=== PATIENT | male | born 1995 | race Caucasian/White ===

== ENCOUNTER 2024-05-30 10:33 | Emergency (ER) | payer OTHER ==
[~2024-05-30] VITALS: Ht 175.3 cm; Wt 92.3 kg
[~2024-05-30 10:33] MED LIST: IBUP-1051 PO; NO HOME MEDS; PSEU-225 PO
[2024-05-30 10:37] VITALS: TEMP 98
[2024-05-30] MEDS ORDERED: MELO-102 PO (14:12)
[2024-05-30] MEDS: ketorolac trometh. 30mg/ml inj. IM ONE (14:12)
[2024-05-30] MEDS ORDERED: GABA600T13 PO (14:13)
[2024-05-30] MEDS ORDERED: DULO20CA50 PO (14:14)
[2024-05-30] MEDS ORDERED: GABA300C PO (14:22)
[2024-05-30] MEDS ORDERED: HYDR-3973 PO (14:26)
[2024-05-30 15:02] VITALS: BP 123/72; PULSE 67; RESP 18; O2SAT 97
== END 2024-05-30 15:07 | disposition home or self-care (01) ==
LOC: ER 10:34
DX: G89.29 Other chronic pain (principal); M54.59 Other low back pain; M54.17 Radiculopathy, lumbosacral region; R20.0 Anesthesia of skin; Z79.1 Long term (current) use of non-steroidal anti-inflammatories (NSAID); Z79.899 Other long term (current) drug therapy
CPT/HCPCS: 96372; 99283; J1885

== ENCOUNTER 2025-05-14 07:06 | Emergency (ER) | payer MEDICAID ==
[~2025-05-14] VITALS: Ht 177.8 cm; Wt 95.5 kg
[~2025-05-14 07:06] MED LIST changes: +DULO20CA50 PO; +GABA-1405 PO; +GABA300C PO; +MELO-102 PO
[2025-05-14 07:07] VITALS: BP 148/89; TEMP 98
[2025-05-14] MEDS: LIDOcaine 5% patch TP SCH (07:43)
[2025-05-14] MEDS: ketorolac trometh 30MG/ML vial 30 MG/ML VIAL IM ONE (07:44)
--- NOTE | 2025-05-14 08:46 | Physician Documentation ---
History of Present Illness General Chief Complaint: Back Pain Stated Complaint: BACK PAIN Time Seen by MD: 08:30 Primary Medical Doctor: OUT OF TOWN History of Present Illness Initial Comments The patient is a 29-year-old male with a history of an on the job injury to his back about four years ago. Since that time he has undergone one back surgery and has had numerous pain injections in [his] back. His current flare of pain started a few days ago. He has been taking ibuprofen without effect. He denies any bowel or bladder dysfunction and has no fever. Medication Reconciliation Allergies: Coded Allergies: No Known Allergies (Unverified , 05/14/25) Scheduled Duloxetine Hcl* (Cymbalta*), 1 CAP PO DAILY Gabapentin (Gabapentin), 1 TAB PO Q8H Gabapentin (Neurontin), 1 CAP PO Q8H Ibuprofen* (Motrin*), 800 MG PO TID Meloxicam (Meloxicam), 1 TAB PO DAILY Pseudoephedrine Hcl (Sudafed), 30-60 MG PO Q6H Miscellaneous Medications Home Med List (No Home Medications), (Reported) Past Medical History Past Medical History: No Pertinent History Smoking: Non-Smoker Alcohol Use: None Drug Use: none Lives with: Family Lives In: Home Occupation: employed Review of Systems ROS Constitutional: Denies chills, fatigue, fever, weight gain or weight loss. HEENT: Denies hearing loss, sinus pressure or visual changes. Respiratory: Denies cough, shortness of breath or wheezing. Cardiovascular: Denies chest pain, pain while walking (claudication), edema or palpitations. Gastrointestinal: Denies abdominal pain, blood in stool, constipation, diarrhea, heartburn, loss of appetite, nausea or vomiting. Genitourinary: Denies painful urination (dysuria), excessive amount of urine (polyuria) or urinary frequency. Metabolic/Endocrine: Denies cold intolerance, heat intolerance, excessive thirst (polydipsia) or excessive hunger (polyphagia). Neurological: Denies dizziness, extremity numbness, extremity weakness, headaches, seizures or tremors. Psychiatric: Denies anxiety or depression. Integumentary: Denies breast discharge, breast lump, hives, mole change(s), rash or skin lesion. Musculoskeletal: Back pain radiating into the right buttock Hematologic: Denies easily bleeding, easily bruises, lymphedema or issues with blood clots. Immunologic: Denies food allergies or seasonal allergies. Physical Exam Physical Exam Vital Signs: Temperature: 98.0, Heart Rate: 75, Respiratory Rate: 16, BP: 148/89, Pulse Oximetry: 100, Weight: 95.450 Oxygen Flow Rate: 0 General Appearance Physical Exam Vitals and nursing note reviewed. Constitutional: General: Patient is awake, alert, oriented x 4 in no acute distress and well appearing. Speech is clear and lucid. Appearance: Normal appearance. Patient is not ill-appearing, toxic-appearing or diaphoretic. HENT: Head: Normocephalic and atraumatic. Mouth/Throat: Mouth: Mucous membranes are moist. Pharynx: Oropharynx is clear. Eyes: General: No scleral icterus. Extraocular Movements: Extraocular movements intact. Pupils: Pupils are equal, round, and reactive to light. Cardiovascular: Rate and Rhythm: Normal rate and regular rhythm. Heart sounds: No murmur heard. Pulmonary: Effort: No respiratory distress. Breath sounds: No wheezing, rhonchi or rales. Abdominal: General: There is no distension. Palpations: There is no fluid wave, hepatomegaly or mass. Tenderness: There is no abdominal tenderness. There is no guarding. Musculoskeletal: General: No swelling or deformity. Patient is ambulatory but limps. Skin: Coloration: Skin is not jaundiced. Findings: No erythema or rash. Neurological: Mental Status: Patient is alert. Progress Results/Orders Results/Orders Orders - JOANIE HARMON MD Lidocaine 5% Patch (Lidoderm 5% Patch) (05/14/25 08:00) Completed Orders - JOANIE HARMON MD Ketorolac Trometh 30mg/Ml Vial (Toradol (05/14/25 07:35) Medications Received in ER Medications (Trade) Dose Ordered Sig/Paras Route PRN Reason Start Time Stop Time Status Last Admin Dose Admin (Lidoderm 5% Patch) 1 patch DAILY TP 05/14/25 08:00 05/14/25 07:43 1 PATCH (Toradol inj. 30mg/ml) 30 mg ONCE ONCE IM 05/14/25 07:35 05/14/25 07:36 DC 05/14/25 07:44 30 MG Vital Signs 05/14/25 05/14/25 05/14/25 07:07 07:44 08:21 Temp 98.0 Pulse 75 Resp 16 19 16 B/P (MAP) 148/89 Pulse Ox 100 O2 Flow Rate 0 Medical Decision Making Findings This 29-year-old male has been more LS disabled by a back injury four years ago on the job while working in [place]. He has undergone one back surgery and multiple back injections. He has yet to establish a primary care provider. I am going to have him continue taking ibuprofen and prescribe Flexeril. I am also providing him with crutches. I have encouraged him to establish care with a PCP. Departure Disposition: HOME / SELF CARE / HOMELESS Impression: Primary Impression: Lumbosacral pain, chronic Condition: Stable Discharge Instructions: Chronic Back Pain Additional Instructions: Work on establishing a primary care provider. Referrals: NO PRIMARY CARE PROVIDER (PCP) Prescriptions Cyclobenzaprine HCl (Cyclobenzaprine HCl) 10 Mg Tablet 1 TAB PO Q8H for muscle spasms for 10 Days, #30 TAB Prov: JOANIE HARMON MD 05/14/25 Signature Scribe Signature: . Attestation: . JOANIE HARMON MD May 14, 2025 08:46
[2025-05-14] MEDS ORDERED: CYCL-394 PO (08:48)
[2025-05-14 09:03] VITALS: PULSE 67; RESP 18; O2SAT 98
== END 2025-05-14 09:04 | disposition home or self-care (01) ==
LOC: ER 07:07
DX: M54.50 Low back pain, unspecified (principal)
CPT/HCPCS: 96372; 99283; J1885